=== PATIENT | male | born 1950 | race Caucasian/White ===

== ENCOUNTER 2018-03-12 12:02 | Outpatient (CLI) | payer MEDICARE ==
[2018-03-12 12:45] LABS: CULTURE INDICATED? YES; MICROSCOPIC INDICATED
== END 2018-03-12 23:59 | disposition home or self-care (01) ==
LOC: CFH 12:02
PROVIDERS: ATTEND Radiology Radiation Oncology
DX: C61 Malignant neoplasm of prostate (principal); R30.0 Dysuria; R35.0 Frequency of micturition
CPT/HCPCS: 81001; 87086

== ENCOUNTER → 2018-04-10 | Outpatient (CLI) | payer MEDICARE ==
[~2018-04-10] MED LIST: FENTANYL PF 100 MCG/2ML IVPush ONE; LIDOCAINE/PF 1%, 30ML IV ONE; MIDAZOLAM 1 MG/ML, 5ML IVPush ONE
== END | disposition home or self-care (01) ==
LOC: ROC 07:56
PROVIDERS: ATTEND Radiology Radiation Oncology
DX: C61 Malignant neoplasm of prostate (principal)
CPT/HCPCS: 76942; 77332; 99156; A4648; J2250; J3010; J3490

== ENCOUNTER → 2018-04-16 | Outpatient (CLI) | payer MEDICARE | END | disposition home or self-care (01) | LOC: CFH 12:18 | PROVIDERS: ATTEND Radiology Radiation Oncology | DX: C61 Malignant neoplasm of prostate (principal); I10 Essential (primary) hypertension | CPT/HCPCS: 72195 ==

== ENCOUNTER → 2018-08-02 | Outpatient (CLI) | payer MEDICARE | END | disposition home or self-care (01) | LOC: ROC 07:44 | PROVIDERS: ATTEND Radiology Radiation Oncology | DX: C61 Malignant neoplasm of prostate (principal) | CPT/HCPCS: G0463 ==

== ENCOUNTER → 2019-01-17 | Outpatient (CLI) | payer MEDICARE | END | disposition home or self-care (01) | LOC: ROC 07:43 | PROVIDERS: ATTEND Radiology Radiation Oncology | DX: C61 Malignant neoplasm of prostate (principal) | CPT/HCPCS: G0463 ==

== ENCOUNTER → 2019-03-06 | Outpatient (CLI) | payer MEDICARE ==
[~2019-03-06] MED LIST changes: +ATEN50TA41 PO; -FENTANYL PF 100 MCG/2ML IVPush ONE; -LIDOCAINE/PF 1%, 30ML IV ONE; +LORA-247 PO; -MIDAZOLAM 1 MG/ML, 5ML IVPush ONE; +SOLI10TA2 PO; +TAMS-11 PO; +TURM1CAP PO; +[UNRECOGNIZED DRUG - OTHER] PO; +[UNRECOGNIZED DRUG - OTHER] PO
== END | disposition home or self-care (01) ==
LOC: STAR 14:32
PROVIDERS: ATTEND Surgery
DX: Z01.818 Encounter for other preprocedural examination (principal); K43.2 Incisional hernia without obstruction or gangrene; R94.31 Abnormal electrocardiogram [ECG] [EKG]
CPT/HCPCS: 93005

== ENCOUNTER 2019-03-15 09:58 | Day surgery (SDC) | payer MEDICARE ==
[~2019-03-15] VITALS: Ht 182.9 cm; Wt 112.6 kg
[2019-03-15] MEDS ORDERED: LACTATED RINGERS 1,000 ML IV ONE (10:11)
[2019-03-15] MEDS ORDERED: GABAPENTIN 300 MG CAPSULE PO STA (10:12)
[2019-03-15] MEDS ORDERED: ACETAMINOPHEN 500 MG TABLET PO STA (10:12)
[2019-03-15 10:46] VITALS: BP 127/85
[2019-03-15] MEDS ORDERED: EPINEPHRINE 1 MG/ML, 1ML ONE (11:30)
[2019-03-15] MEDS ORDERED: BUPIVACAINE/PF 0.5% ONE (11:30)
[2019-03-15] MEDS ORDERED: PROMETHAZINE 25 MG/ML, 1ML IV PRN (12:30)
[2019-03-15] MEDS ORDERED: FENTANYL PF 100 MCG/2ML IV PRN (12:30)
[2019-03-15] MEDS ORDERED: MEPERIDINE/PF 25MG/ML,1ML IVPush PRN (12:30)
[2019-03-15] MEDS ORDERED: ONDANSETRON 2MG/ML, 2ML IV PRN (12:30)
[2019-03-15] MEDS ORDERED: EPHEDRINE 50 MG/ML, 1ML IVPush PRN (12:30)
[2019-03-15] MEDS ORDERED: HYDROmorphone 2 MG/ML, 1ML IVPush PRN ×2 (12:30→14:30)
[2019-03-15] MEDS ORDERED: hydrALAzine 20 MG/ML, 1ML IV PRN (12:30)
[2019-03-15] MEDS ORDERED: OXYcodone 5 MG/5 ML ORAL.SOL UDC PO PRN ×2 (12:30→14:30)
[2019-03-15] MEDS ORDERED: MIDAZOLAM 1 MG/ML, 2ML ONE (12:38)
[2019-03-15] MEDS ORDERED: FENTANYL PF 250 MCG/5ML ONE (12:38)
[2019-03-15] MEDS ORDERED: NEOSTIGMINE 1 MG/ML, 10ML ONE (12:39)
[2019-03-15] MEDS ORDERED: CEFAZOLIN 1,000 MG ONE (12:39)
[2019-03-15] MEDS ORDERED: ROCURONIUM 10MG/ML,5ML ONE (12:39)
[2019-03-15] MEDS ORDERED: LIDOCAINE-MPF 2% ,5ML ONE (12:58)
[2019-03-15] MEDS ORDERED: KETOROLAC 30 MG/1 ML ONE (12:58)
[2019-03-15] MEDS ORDERED: EPHEDRINE 50 MG/ML, 1ML ONE (13:08)
[2019-03-15] MEDS ORDERED: DEXAMETHASONE 4 MG/ML, 1ML ONE (13:08)
[2019-03-15] MEDS ORDERED: SUCCINYLCHOLINE 20 MG/ML, 10ML ONE (13:08)
[2019-03-15] MEDS ORDERED: GLYCOPYRROLATE 0.2MG/1ML, 5ML ONE (13:08)
[2019-03-15] MEDS ORDERED: ONDANSETRON 2MG/ML, 2ML ONE (13:08)
== END 2019-03-15 17:45 | disposition home or self-care (01) ==
LOC: OUT 09:58
PROVIDERS: ATTEND Surgery
DX: K43.2 Incisional hernia without obstruction or gangrene (principal); G47.33 Obstructive sleep apnea (adult) (pediatric)
CPT/HCPCS: 49656; C1781; J0171; J0330; J0690; J1100; J1885; J2250; J2405; J2710; J3010; J7120